=== PATIENT | male | born 1990 | race Caucasian/White ===

== ENCOUNTER → 2022-08-20 11:21 | Outpatient (CLI) | payer BC, SELFPAY ==
--- NOTE | ~2022-08-20 | XR_ITS ---
Clinical Indication: Cough PA and lateral views of the chest: Comparison: None Findings: The lungs are clear, without evidence of focal consolidation or pleural effusion. Cardiome diastinal silhouette is within normal limits. Bones and soft tissues are unremarkable. Impression: Normal chest. Reviewed, dictated and finalized at location . Impression: Normal chest.
== END ==
PROVIDERS: PCP Nurse Practitioner Family; Visit Provider Nurse Practitioner Family
DX: R05.9 Cough, unspecified (principal)
CPT/HCPCS: 71046

== ENCOUNTER → 2022-11-30 09:58 | Outpatient (CLI) | payer BC, SELFPAY ==
--- NOTE | ~2022-11-30 | CT_ITS ---
EXAMINATION: CT sinus wo con DATE: 11/30/2022 10:11 INDICATION: Nasal polyps TECHNIQUE: Computed tomography (CT) of the paranasal sinuses was performed without intravenous contra st. The dose-length product was 295.93 mGy-cm. Automated exposure control and iterative reconstructio n technique were employed. COMPARISON: None FINDINGS: There is mucosal thickening of the ethmoid, maxillary and sphenoid sinuses. There is polypo id shaped soft tissue in the maxillary antrum bilaterally which may represent polyps or mucous retent ion cysts. Mastoids are pneumatized. No significant mucoperiosteal reaction. There is irregular ossif ication within the maxillary soft tissue, consistent with chronic sinusitis. IMPRESSION: 1. Moderate sinusitis with polypoid soft tissue bilaterally involving the maxillary antrum which may represent polyps or mucous retention cysts. Reviewed, dictated and finalized at location L. IMPRESSION: 1. Moderate sinusitis with polypoid soft tissue bilaterally involving the maxil lizabeth antrum which may represent polyps or mucous retention cysts.
== END ==
PROVIDERS: PCP Otolaryngology; Visit Provider Otolaryngology
DX: J33.9 Nasal polyp, unspecified (principal); J32.9 Chronic sinusitis, unspecified
CPT/HCPCS: 70486

== ENCOUNTER 2023-02-01 00:21 | Day surgery (SDC) | payer BC, SELFPAY ==
[2023-01-27 09:22] VITALS: BMI 46.0
--- NOTE | 2023-01-27 09:30 | PC.NURSE ---
Report to the Outpatient Waiting Room, entrance under the green pavilion located off [facility], at time 0930 on date 02/01/23. Planned Procedure Time: 1130. Time changes happen often and if your time is changed the preop area will call you the afternoon before. - You and your visitor will be asked to self-screen and do not enter if you have any COVID symptoms. - A mask is optional within the hospital at this time. Patients may have clear liquids (water, carbonated beverages, clear teas, apple juice) until 3 hours prior to surgery with a maximum of 20 ounces. - No food from midnight until time of surgery Take the following medications with a SIP of water the morning of surgery: INHALERS NEEDED, PREDNISONE PT STATES HE WILL WAIT UNTIL AFTER SURGERY FOR ANY OTHER MEDICATIONS DUE TO NEEDING TO TAKE WITH FOOD. DO NOT STOP ANY OF YOUR OTHER PRESCRIPTION MEDICATIONS PRIOR TO SURGERY ?EXCEPT THE FOLLOWING Medications to discontinue per physician: VITAMINS/SUPPLEMENTS Date to take last dose: 01/28/23 Please no make-up, nail icelandic, hairspray, perfume, deodorant, or body powder the day of surgery. No jewelry (including any body piercings) or valuables the day of surgery, leave them at home. Please take a shower or bath the night before, or the morning of, surgery with an antibacterial soap. Wear comfortable, loose fitting clothing. - Jewelry must be removed prior to entering the operating room. Rings and piercings that are not removed may be cut off. - The hospital will not accept responsibility for valuables. - Please leave all valuables, including medications, at home the day of surgery. If you are going home after surgery, a licensed dump truck driver off highway must drive you home. - NO public transportation without another adult if you receive anesthesia. - We recommend that an adult stay with you for 24 hours following discharge. - We also recommend that you do not drive, make important decision, drink alcoholic beverages, or take any drugs that were not prescribed by your health care provider for at least 24 hours after your discharge time. Follow any additional instructions given to you from your surgeon. If you or anyone in your household have experienced Covid symptoms in the past week, please notify your surgeon or the nurse liaison at the phone number below for possible testing. Telephone instructions given to PT - ARTHUR GAY and asked if any additional questions and then verbalized understanding. Patient advised to call surgeon office or pre surgery nurse liaison [phone] if any additional questions.
--- NOTE | 2023-01-31 16:52 | PM.IMHP ---
H&P: HPI History of Present Illness Date/Time: 01/31/23 16:52 Chief Complaint: Septal deviation chronic sinusitis nasal polyp Narrative: planned procedure Review of Systems Review of Systems: All systems reviewed & are unremarkable except as noted in HPI and below [facility] Past Medical History Medical History (Updated 01/20/23 @ 12:26 by Amos Chairez MD) ADHD Alopecia Esophageal reflux Left sided colitis with rectal bleeding Oppositional defiant disorder Other asthma Paresthesia of both hands Family History Family History Grandparent Family history of type 2 diabetes mellitus Social History Social History Smoking status: Never smoker Alcohol intake: current Alcohol use details: Q2-3 MONTHS Substance use: never Substance use type: does not use Lack of Transportation: No Lack of Food: Never True Current Housing: I Have Housing Concerned About Future Housing: No Difficulty Paying Gas/Electric Bills: No Difficulty Paying for Meds: YES Currently Unemployed: No Education: Master's Degree or Higher Difficulty w/ Childcare or Family Care: No Living arrangements: alone Occupation/Education: occupation Gender identity (if verbalized by the patient): Male Spiritual care concerns: No Agree to blood products: Yes Meds Home Medications and Allergies Home Medications Medication Instructions Recorded Confirmed Type albuterol sulfate 2.5 mg/3 mL 2.5 mg (3 mL) inhalation Q4-6H PRN 03/07/20 01/27/23 Rx (0.083 %) solution for nebulization shortness of breath or wheezing #75 mL nebulizers #1 ea 03/07/20 11/11/22 Rx azelastine 137 mcg (0.1 %) nasal 137 mcg intranasal Q12H 12/17/20 01/27/23 History spray aerosol cetirizine 10 mg tablet (Allergy 10 mg PO DAILY PRN Allergy Symptoms 12/17/20 01/27/23 History Relief (cetirizine)) famotidine 20 mg tablet 20 mg PO DAILY 12/17/20 01/27/23 History triamcinolone acetonide 0.1 % 1 applic topical BID 12/17/20 01/27/23 History topical cream azathioprine 50 mg tablet 50 mg PO DAILY 01/08/22 01/27/23 History dextroamphetamine-amphetamine 10 10 mg PO DAILY add #30 tabs 01/08/22 01/27/23 Rx mg tablet (Adderall) infliximab-dyyb 100 mg intravenous 100 mg IV USEASDIRECTD 01/08/22 01/27/23 History solution (Inflectra) montelukast 10 mg tablet 10 mg PO DAILY 05/06/22 01/27/23 History albuterol sulfate 90 mcg/actuation 1 inh inhalation Q4H PRN shortness 05/07/22 01/27/23 Rx aerosol inhaler of breath or wheezing #25.5 grams fluticasone 250 mcg-salmeterol 50 1 inh inhalation BID #60 ea 05/11/22 01/27/23 Rx mcg/dose blistr powdr for inhalation (Advair Diskus) dextroamphetamine sulfate 10 mg 10 mg PO DAILY #30 caps 06/04/22 01/27/23 Rx capsule,extended release trazodone 100 mg tablet 100 mg PO QHS #90 tabs 09/10/22 01/27/23 Rx minocycline 4 % topical foam 1 applic topical DAILY 01/20/23 01/27/23 History (Amzeeq) sarecycline 100 mg tablet 100 mg PO DAILY 01/20/23 01/27/23 History trifarotene 0.005 % topical cream 1 applic topical QPM 01/20/23 01/27/23 History (Aklief) prednisone 5 mg tablet 5 mg PO .daily #14 tabs 01/26/23 01/26/23 Rx creatine monohydrate 1 ea PO DAILY 01/27/23 01/27/23 History fexofenadine 60 mg tablet 60 mg PO Q12H PRN Allergy Symptoms 01/27/23 01/27/23 History levocetirizine 5 mg tablet (Xyzal) 5 mg PO DAILY PRN Allergy Symptoms 01/27/23 01/27/23 History multivitamin 1 tablet PO BID 01/27/23 01/27/23 History omeprazole 20 mg tablet,delayed 20 mg PO BID 01/27/23 01/27/23 History release budesonide 0.25 mg/2 mL suspension 0.25 mg (2 mL) irrigation BID #120 01/31/23 Rx for nebulization mL Allergies Allergy/AdvReac Type Severity Reaction Status Date / Time cefixime Allergy Unknown Pt does Verified 01/27/23 09:14 not remember reaction Pertussis Vaccines Allerg
[2023-02-01] VITALS (9 sets, daily range): BP systolic 113–154; BP diastolic 69–91; PULSE 72–104; RESP 14–20; TEMP 36.4–36.6; O2SAT 100
--- NOTE | 2023-02-01 07:38 | WPDHPUPDATE1 ---
History and Physical Update Update Date/Time: 02/01/23 07:38 History and Physical has been reviewed, including an updated exam of the patient. There are NO changes in the patient's condition. Risks, benefits, and alternatives have been discussed and questions answered. Patient agrees to proceed with procedure.
--- NOTE | 2023-02-01 08:47 | WPDHPUPDATE1 ---
History and Physical Update Update Date/Time: 02/01/23 08:47 Add possible inferior turibinate reduction with outfracture
[2023-02-01] MEDS: LACTATED RINGERS 1,000 ML 30 ML IV CONT ×2 (10:35→16:15)
[2023-02-01] MEDS: ACETAMINOPHEN 500 MG TABLET 1000 MG PO (10:41)
--- NOTE | 2023-02-01 11:02 | WPDANESEPPF ---
Anes - Initial Pre Proc Eval Procedure: Operation Date: 02/01/23 11:30 Proposed Procedures p Image Guided Bilateral Inferior Turbinate Reduction With Outfracture, Bilateral Maxillary Antrostomy, Total Ethmoidectomy, Frontal Sinusotomy, Bilateral Sphenoidotomy, - Davion Chavez MD s Septoplasty - Davion Chavez MD Date/Time: 02/01/23 11:02 Surgeon: Davion Chavez MD Pre Op Diagnosis: chronic sinusitis Patient Data Age: 32 Gender: M Height: 1.8 m Weight: 104 kg Allergies Allergy/AdvReac Type Severity Reaction Status Date / Time Pertussis Vaccines Allergy Unknown States was Verified 01/27/23 09:14 irritable, no high fever or neurologic reactions Home Medications Medication Instructions Recorded Confirmed Type albuterol sulfate 2.5 mg/3 mL 2.5 mg (3 mL) inhalation Q4-6H PRN 03/07/20 01/27/23 Rx (0.083 %) solution for nebulization shortness of breath or wheezing #75 mL nebulizers #1 ea 03/07/20 11/11/22 Rx azelastine 137 mcg (0.1 %) nasal 137 mcg intranasal Q12H 12/17/20 01/27/23 History spray aerosol cetirizine 10 mg tablet (Allergy 10 mg PO DAILY PRN Allergy Symptoms 12/17/20 01/27/23 History Relief (cetirizine)) famotidine 20 mg tablet 20 mg PO DAILY 12/17/20 01/27/23 History triamcinolone acetonide 0.1 % 1 applic topical BID 12/17/20 01/27/23 History topical cream azathioprine 50 mg tablet 50 mg PO DAILY 01/08/22 01/27/23 History dextroamphetamine-amphetamine 10 10 mg PO DAILY add #30 tabs 01/08/22 01/27/23 Rx mg tablet (Adderall) infliximab-dyyb 100 mg intravenous 100 mg IV USEASDIRECTD 01/08/22 01/27/23 History solution (Inflectra) montelukast 10 mg tablet 10 mg PO DAILY 05/06/22 01/27/23 History albuterol sulfate 90 mcg/actuation 1 inh inhalation Q4H PRN shortness 05/07/22 01/27/23 Rx aerosol inhaler of breath or wheezing #25.5 grams fluticasone 250 mcg-salmeterol 50 1 inh inhalation BID #60 ea 05/11/22 01/27/23 Rx mcg/dose blistr powdr for inhalation (Advair Diskus) dextroamphetamine sulfate 10 mg 10 mg PO DAILY #30 caps 06/04/22 01/27/23 Rx capsule,extended release trazodone 100 mg tablet 100 mg PO QHS #90 tabs 09/10/22 01/27/23 Rx minocycline 4 % topical foam 1 applic topical DAILY 01/20/23 01/27/23 History (Amzeeq) sarecycline 100 mg tablet 100 mg PO DAILY 01/20/23 01/27/23 History trifarotene 0.005 % topical cream 1 applic topical QPM 01/20/23 01/27/23 History (Aklief) prednisone 5 mg tablet 5 mg PO .daily #14 tabs 01/26/23 01/26/23 Rx creatine monohydrate 1 ea PO DAILY 01/27/23 01/27/23 History fexofenadine 60 mg tablet 60 mg PO Q12H PRN Allergy Symptoms 01/27/23 01/27/23 History levocetirizine 5 mg tablet (Xyzal) 5 mg PO DAILY PRN Allergy Symptoms 01/27/23 01/27/23 History multivitamin 1 tablet PO BID 01/27/23 01/27/23 History omeprazole 20 mg tablet,delayed 20 mg PO BID 01/27/23 01/27/23 History release budesonide 0.25 mg/2 mL suspension 0.25 mg (2 mL) irrigation BID #120 01/31/23 02/01/23 Rx for nebulization mL Patient hx anesthesia problems: none Family hx anesthesia problems: none Results Review: All pre-operative results and documents have been reviewed as part of the pre-operative evaluation. [facility] Past Medical History Medical History ADHD Alopecia Esophageal reflux Left sided colitis with rectal bleeding Oppositional defiant disorder Other asthma Paresthesia of both hands Surgical History Surgical History (Updated 02/01/23 @ 11:02 by Zach Maloney MD) H/O colonoscopy H/O sinus surgery Family History Family History Grandparent Family history of type 2 diabetes mellitus Social History Social History Smoking status: Never smoker Alcohol intake: current Alcohol use details: Q2-3 MONTHS Substance use: never Substance use type: does
[2023-02-01] MEDS: ceFAZolin 2 GM/D5W 50 ML 2 GM/50 ML BAG IVPB (12:15)
[2023-02-01] MEDS: LIDO 1%/EPINEPHRINE 1:100,000 50 ML VIAL INFILTRATE (16:08)
[2023-02-01] MEDS: fentaNYL CITRATE INJ (*CRX) 100 MCG/2 ML VIAL 25 MCG IV PUSH ×8 (16:26→16:55)
[2023-02-01] MEDS: ONDANSETRON INJ 4 MG/2 ML VIAL IV PUSH (16:26)
[2023-02-01] MEDS: diphenhydrAMINE HCl INJ 50 MG/ML VIAL 25 MG IV PUSH (16:46)
--- NOTE | 2023-02-01 16:51 | W.PM.PROC2 ---
Procedure Note - Detailed Date of Procedure 02/01/23 Pre-op Diagnosis chronic sinusitis, septal deviation, turbinate hypertrophy, nasal polyps Post-op Diagnosis Same Procedure Performed Bilateral image guided endoscopic maxillary antrostomies total ethmoidectomies frontal sinusotomies sphenoidotomies. Right inferior turbinate reduction with outfracture, septoplasty, bilateral middle turbinectomies Surgeon Davion Chavez MD Anesthesia General Indications See above Findings Severe polypoid edema in all the aforementioned sinuses. Polyps on the middle turbinates bilaterally they were also scarred over laterally. Right severely hypertrophied inferior turbinate septal deviation posteriorly posterior to the previous septal perforation repair. Description of Procedure Patient identified consent verified in the preoperative holding area. Patient brought to the operating room. Time-out performed. General anesthesia induced endotracheal tube secured. Patient prepped draped position procedure confirmed. Second time-out performed. Image guidance initiated and confirmed. Afrin-soaked pledgets placed for 5 minutes then removed. 0 degree endoscope utilized. Middle turbinates were both scarred over laterally and full of polyps and polypoid edema. Total of 10 cc 1% lidocaine 1 100,000 parts epinephrine was injected in the bilateral nasal septum posterior to the previous perforation repair as well as the bilateral middle turbinates. As well as the right inferior turbinate. Middle turbinates resected with straight through cut pedicles cauterized with Bovie suction cautery at a setting of 15. Septoplasty performed posterior to the previous perforation semi lunar incision made nasal septal flap on the left elevated a 7 Lao suction and Patterson septal crust over with osteotome right nasal septal flap elevated small right posterior perforation none on the left. Deviated septum removed with straight through cut up-biting through cut Reynaldo [place] forceps and Gwendolyn forceps. Quilting stitch placed believe it was a 4-0 fast on a Earl needle. Right inferior turbinate reduced in the submucosal plane 2 mm turbinate blade 1 small mid perforation. Entry point was cauterized. Right inferior turbinate was then outfractured at this point the middle turbinates have been removed in the right inferior turbinate reduced in size. The septum is also been straightened. Maxillary antrostomies performed with rad 60 microdebrider straight image guided microdebrider straight through cut backbiter double ball tip probe. Great care was ensured great care was taken to ensure that the natural os connected to the surgical os that the nasal lacrimal duct as well as orbit was not injured. Ethmoidectomies performed with [place]. Image guided microdebrider image guidance. Great care was taken to not injure the septum skull base or orbit. Sphenoidotomies performed under image guidance with Kerrison sphenoid punch and microdebrider. Posterior septal arteries cauterized side needed to take the floor of the sphenoid antrum low. Frontal sinusotomies performed with image guidance 70 degree scope and 70 degree suction. Bone was removed using combination of Cobra sphenoid punch and draft instruments. Great care was taken to not injure the orbit on either side the septum nor the skull base. The anterior ethmoidal arteries were protected on both sides. The nasal passages were then copiously irrigated with sterile normal saline. Bleeding was at acceptable rate. Propel stents were placed in the bilateral frontal outflow tracts. No pack was placed in the bilateral operative cavities. The node pack was then inflated with sterile normal saline. I performed all dictated portions of procedure. Blood loss 100 cc. No complications. Patient was taken to PACU. Patient's vision worked in PACU. Estimated Blood Loss 100 Drains No Packing Yes (Nova pack) Pathology None sent Complications No immedi
[2023-02-01] MEDS: HYDROmorphone HCL INJ (*CRX) 1 MG/ML SYR 0.5 MG IV PUSH ×2 (17:07→17:15)
[2023-02-01] MEDS: oxyCODONE HCL (*CRX) 5 MG TAB IR PO (17:51)
== END 2023-02-01 18:27 | disposition home or self-care (01) ==
PROVIDERS: PCP Family Medicine; Visit Provider Otolaryngology
PROC: (CPT 31257; principal; 2023-02-01 11:30)
PROC: (CPT 30520; 2023-02-01 11:30)
DX: J34.2 Deviated nasal septum (principal); J32.9 Chronic sinusitis, unspecified; J33.9 Nasal polyp, unspecified; J33.8 Other polyp of sinus; J34.3 Hypertrophy of nasal turbinates; R09.82 Postnasal drip; F90.9 Attention-deficit hyperactivity disorder, unspecified type; F91.3 Oppositional defiant disorder; J45.998 Other asthma; R20.2 Paresthesia of skin; F10.90 Alcohol use, unspecified, uncomplicated; Z79.51 Long term (current) use of inhaled steroids; Z79.52 Long term (current) use of systemic steroids
CPT/HCPCS: 31257; 31276; 31256; 30520; 30140; 61782; A9270; C2625; J0690; J1100; J1170; J1200; J2250; J2405; J2704; J3010; J7120

== ENCOUNTER 2023-03-09 14:45 | Outpatient (RCR) | payer BC, SELFPAY ==
[2023-01-26 09:30] VITALS: BMI 33.7
[2023-03-09 15:00] VITALS: BMI 32.7
[2023-03-09 15:02] VITALS: BMI 32.7
== END 2023-04-25 08:43 | disposition home or self-care (01) ==
LOC: ANHDMC 14:45
PROVIDERS: PCP Family Medicine; Visit Provider Family Medicine
DX: E66.9 Obesity, unspecified (principal); Z71.3 Dietary counseling and surveillance
CPT/HCPCS: 97802; 97803

== ENCOUNTER 2023-07-26 13:30 | Outpatient (RCR) | payer BC, SELFPAY ==
[2023-06-09 14:50] VITALS: BMI 34.1
[2023-06-30 13:30] VITALS: BMI 34.1
[2023-07-26 13:30] VITALS: BMI 32.5
[2023-07-26 13:32] VITALS: BMI 32.5
== END 2023-09-06 14:01 | disposition home or self-care (01) ==
LOC: ANHDMC 13:30
PROVIDERS: PCP Family Medicine; Visit Provider Family Medicine
DX: E66.9 Obesity, unspecified (principal); Z71.3 Dietary counseling and surveillance
CPT/HCPCS: 97802; 97803

== ENCOUNTER 2023-11-01 14:53 | Outpatient (RCR) | payer BC, SELFPAY ==
[2023-11-01 14:57] VITALS: BMI 32.0
[2023-11-01 15:00] VITALS: BMI 32.0
== END 2024-01-18 14:13 | disposition home or self-care (01) ==
LOC: ANHDMC 14:53
PROVIDERS: PCP Family Medicine; Visit Provider Family Medicine
DX: E66.9 Obesity, unspecified (principal); Z71.3 Dietary counseling and surveillance
CPT/HCPCS: 97803